=== PATIENT | male | born 1965 | race Caucasian/White ===

== ENCOUNTER → 2017-12-24 | Outpatient (CLI) | payer MEDICARE ==
[~2017-12-24] MED LIST: AMLO5 PO; Aluminum H320 MG/5 M PO; Aranesp60 MCG/0.3 INJ; BUME2 PO; CLON.2TP TOP; DOCU100 PO; HYDACE10B PO; HYDACE5 PO; HYDACE5325 PO; IBUP400; METO25ER PO; Norco 5-325 Ta1 EACH PO; OXYC5 PO; SEVEC800 PO; SULTRIDS PO; Synthroid25 MCG PO
[2017-12-30 15:07] LABS: A/G RATIO 1.8 (0.7-1.7); ALBUMIN 4.1 g/dL (2.9-4.4); ALPHA-1-GLOBULIN 0.1 g/dL (0.0-0.4); ALPHA-2-GLOBULIN 0.6 g/dL (0.4-1.0); BETA GLOBULIN 0.4 g/dL (0.7-1.3); GAMMA GLOBULIN 1.1 g/dL (0.4-1.8); GLOBULIN, TOTAL 2.3 g/dL (2.2-3.9); IMMUNOGLOBULIN A, QN, SERUM 228 mg/dL (90-386); IMMUNOGLOBULIN G, QN, SERUM 1103 mg/dL (700-1600); IMMUNOGLOBULIN M, QN, SERUM 65 mg/dL (20-172); M-SPIKE Not Observed g/dL (Not Observed); PROTEIN, TOTAL, SERUM 6.4 g/dL (6.0-8.5)
== END | disposition home or self-care (01) ==
LOC: LAB SHORT 08:51 → LAB 08:51
PROVIDERS: Internal Medicine Nephrology
DX: E83.52 Hypercalcemia (principal)
CPT/HCPCS: 82784; 84165; 86334

== ENCOUNTER → 2018-06-12 | Outpatient (CLI) | payer MEDICARE | LOC: LAB SHORT 08:35 → LAB 08:35 | DX: E07.9 Disorder of thyroid, unspecified (principal) | CPT/HCPCS: 84443 ==

== ENCOUNTER 2018-11-11 10:42 | Observation (INO) | payer MEDICARE, OTHER ==
[~2018-11-11] VITALS: Ht 182.9 cm; Wt 77.1 kg
[~2018-11-11 10:42] MED LIST changes: +LEVOFLOXACIN250 MG PO; +SYNTHROID175 MCG PO; -Synthroid25 MCG PO
[2018-11-11 11:34] LABS: BASOPHILS ABSOLUTE AUTO 0.02 K/mm3 (0.00-0.23); BASOPHILS PERCENT AUTO 1 % (0-2); EOSINOPHILS ABSOLUTE AUTO 0.08 K/mm3 (0.00-0.68); EOSINOPHILS PERCENT AUTO 2 % (0-6); Hematocrit 28.2 % (37.0-53.0); Hemoglobin 8.9 g/dL (13.5-17.5); IMMATURE GRAN ABSOLUTE AUTO 0.06 K/mm3 (0.00-0.10); IMMATURE GRAN PERCENT AUTO 1 % (0-1); LYMPHOCYTES ABSOLUTE AUTO 0.77 K/mm3 (0.84-5.20); LYMPHOCYTES PERCENT AUTO 18 % (21-46); MONOCYTES ABSOLUTE AUTO 0.29 K/mm3 (0.16-1.47); MONOCYTES PERCENT AUTO 7 % (4-13); Mean Corpuscular HGB 30.5 pg (26.0-34.0); Mean Corpuscular HGB Conc 31.6 g/dL (31.5-36.5); Mean Corpuscular Volume 97 fL (80-100); Mean Platelet Volume 9.1 fL (9.1-12.4); NEUTROPHILS ABSOLUTE AUTO 3.09 K/mm3 (1.96-9.15); NEUTROPHILS PERCENT AUTO 72 % (41-73); Platelet Count 174 K/mm3 (150-400); RDW Coefficient Variation 13.9 % (11.7-14.2); RDW Standard Deviation 48.7 fL (35.1-46.3); Red Blood Cell Count 2.92 M/mm3 (4.30-5.90); White Blood Cell Count 4.31 K/mm3 (4.00-11.30)
[2018-11-11 12:10] LABS: Albumin, Blood 2.9 g/dL (3.4-5.0); Anion Gap 10 mmol/L (6-16); Blood Urea Nitrogen 54 mg/dL (8-24); Bun/Creatinine Ratio 5.7 (12.0-20.0); CO2, Blood 29 mmol/L (21-32); Calcium, Blood 8.6 mg/dL (8.5-10.1); Chloride, Blood 95 mmol/L (98-108); Creatinine, Blood 9.41 mg/dL (0.60-1.20); Glomerular Filtration Rate 6 (60-); Glucose, Blood 100 mg/dL (70-99); Phosphorus, Blood 4.4 mg/dL (2.5-4.9); Sodium, Blood 134 mmol/L (136-145)
[2018-11-11] MEDS ORDERED: CLON.1 PO (12:51)
[2018-11-11] MEDS ORDERED: LOSA50 PO ×2 (12:53→15:54)
[2018-11-11] MEDS ORDERED: VELPHORO500 MG PO (12:56)
[2018-11-11] MEDS ORDERED: Calcium Acetat667 MG PO (12:59)
[2018-11-11] MEDS ORDERED: Zoloft50 MG PO (13:05)
[2018-11-11] MEDS ORDERED: RENAL-VITE TAB0.8 MG PO (13:18)
[2018-11-11] MEDS ORDERED: Revatio20 MG PO (13:20)
[2018-11-11] MEDS ORDERED: MEGESTROL400 MG/10 PO (13:22)
[2018-11-11] MEDS ORDERED: Ventolin/Prove6.7 GM INH (13:23)
[2018-11-11] MEDS ORDERED: ALPR.5 PO (15:57)
--- NOTE | 2018-11-11 18:56 | NUR ---
PT. LYING QUIETLY VISITING WITH FAMILY. PT TO HAVE FISYULA OPERATED ON THIS EVENING BY DR. SUGGS. VANCO GIVEN IV PER DR. VILLANUEVA PROPHYLACTILY BEFORE HAVING SURGERY.
--- NOTE | 2018-11-12 00:55 | NUR ---
CALLED TO [facility] AND GAVE RESULTS OF K AT 5.7. HE ORDERED LOSARTAN TO BE DC'D. CHANGE DIET TO LOW SODIUM AND LOW POTASSIUM 2G NA AND 2G K. HE ALSO WANTS MORNING LABS TO BE DRAWN AT 0400. I HAVE CALLED LAB AND INFORMED OF THIS.
[2018-11-12 04:20] LABS: Hematocrit 26.4 % (37.0-53.0); Hemoglobin 8.3 g/dL (13.5-17.5); Mean Corpuscular HGB 30.9 pg (26.0-34.0); Mean Corpuscular HGB Conc 31.4 g/dL (31.5-36.5); Mean Corpuscular Volume 98 fL (80-100); Mean Platelet Volume 8.4 fL (9.1-12.4); Platelet Count 161 K/mm3 (150-400); RDW Standard Deviation 50.2 fL (35.1-46.3); Red Blood Cell Count 2.69 M/mm3 (4.30-5.90); White Blood Cell Count 5.47 K/mm3 (4.00-11.30)
[2018-11-12 04:41] LABS: Magnesium, Blood 2.6 mg/dL (1.6-2.4)
[2018-11-12 04:44] LABS: Albumin, Blood 2.6 g/dL (3.4-5.0); Anion Gap 8 mmol/L (6-16); Blood Urea Nitrogen 62 mg/dL (8-24); CO2, Blood 27 mmol/L (21-32); Calcium, Blood 8.2 mg/dL (8.5-10.1); Chloride, Blood 101 mmol/L (98-108); Glomerular Filtration Rate 6 (60-); Glucose, Blood 97 mg/dL (70-99); Phosphorus, Blood 5.5 mg/dL (2.5-4.9); Potassium, Blood 5.4 mmol/L (3.5-5.5); Sodium, Blood 136 mmol/L (136-145); Vancomycin, Random 25.7 ug/mL
--- NOTE | 2018-11-12 07:42 | NUR ---
NOC SHIFT SUMMARY PT PLEASANT AND COOPERATIVE WITH CARE THIS NIGHT. FAMILY IN ROOM THIS EVENING. PT WAS TAKEN TO SURGERY TO REPAIR DIALYSIS GRAFT AT 0. ON RETURNING AT 2316 PT WAS AAOX4 BUT A LITTLE SLEEPY. VSS. REQUESTING PAIN MEDICINE WHICH WAS GIVEN. PER [facility] LESS THAN 2G SODIUM AND POTASSIUM DIET. PER [facility] TO RECIEVE 2 UNITY PRBC'S AND DIALYSIS TODAY. FISTULA WRAPPING APPEARS C/D/I. RECIEVED CRITICAL LAB VALUE OF 10.3 CREATININE AT 0445 CALLED TO [facility] NO ORDERS. APPEARS IN NO ACUTE DISTRESS. REPORT TO ONCOMING RN.
[2018-11-12] MEDS ORDERED: Vancocin HCL1000 MG (15:09)
--- NOTE | 2018-11-12 15:31 | NUR ---
PT DISCHARGED WITH DC INSTRUCTIONS. HAD NO HOME MEDS AT HOSPITAL. LOST PHONE IN THE ROOM 327, NEVER FOUND. LEFT MESSAGE AT NURSES DESK IN CASE ONE SHOWS UP. CALLED JOSE LUIS AND THE LAB TO NOTIFY THEM OF DR BRENNAN INSTRUCTIONS FOR VANC PROTOCOL 2 WEEKS. IV DC'D. DIALYSIS GRAFT WITH BANDAIDS, NO BLEEDING. AMBULATORY OUT TO CAR WITH , REFUSED W/C TRANSPORT.
== END 2018-11-12 15:30 | disposition home or self-care (01) ==
LOC: ER 10:42 → MEDS 10:43 → ER 13:40 → MEDS 13:40
PROVIDERS: Emergency Medicine; Pharmacist; ADMIT Internal Medicine
DX: T82.49XA Other complication of vascular dialysis catheter, initial encounter (principal); I12.0 Hypertensive chronic kidney disease with stage 5 chronic kidney disease or end stage renal disease; N18.6 End stage renal disease; D63.1 Anemia in chronic kidney disease; R78.81 Bacteremia; E86.9 Volume depletion, unspecified; E03.9 Hypothyroidism, unspecified; Z79.899 Other long term (current) drug therapy
CPT/HCPCS: 36415; 36430; 36905; 80048; 80069; 80202; 83605; 83735; 84132; 85025; 85027; 86850; 86900; 86901; 86923; 87040; 96374; 96375; 99152; 99153; 99284-25; C1725; C1757; C1769; C1894; C9113; G0257; G0378; J0881; J1170; J1644; J2405; J3010; J3370; J7030; J7042; P9016; Q9967

== ENCOUNTER 2018-11-21 09:02 | Day surgery (SDC) | payer MEDICARE, OTHER ==
[~2018-11-21] VITALS: Ht 175.3 cm; Wt 170.8 kg
[~2018-11-21 09:02] MED LIST changes: +ALPR.5 PO; +CLON.1 PO; +Calcium Acetat667 MG PO; +LOSA50 PO; +MEGESTROL400 MG/10 PO; +RENAL-VITE TAB0.8 MG PO; +Revatio20 MG PO; +VELPHORO500 MG PO; +Vancocin HCL1000 MG; +Ventolin/Prove6.7 GM INH; +Zoloft50 MG PO
--- NOTE | 2018-11-21 09:50 | NUR ---
Pt lungs clear with sb 43. Pt with in room. Call light given.
--- NOTE | 2018-11-21 11:23 | NUR ---
Pt returned at 1100 wide awake with chronic pain of 5/10 back. Pt chest site dry and intact. Pt with call light. He is recovering in recliner chair. HR low pt told to speak to pcp regarding b/p meds.
--- NOTE | 2018-11-21 12:00 | NUR ---
Pt to see Dr. Mendez today regarding low heart rate of 39 post op 40 pre op.
== END 2018-11-21 12:00 | disposition home or self-care (01) ==
LOC: MHTC 09:02
PROC: 02HV33Z Insertion of Infusion Device into Superior Vena Cava, Percutaneous Approach (ICD-10-PCS; principal; 2018-11-21)
PROC: B548ZZA Ultrasonography of Superior Vena Cava, Guidance (ICD-10-PCS; principal; 2018-11-21)
PROC: 0JH63XZ Insertion of Tunneled Vascular Access Device into Chest Subcutaneous Tissue and Fascia, Percutaneous Approach (ICD-10-PCS; principal; 2018-11-21)
DX: T82.898A Other specified complication of vascular prosthetic devices, implants and grafts, initial encounter (principal); N18.6 End stage renal disease; Z99.2 Dependence on renal dialysis; R00.1 Bradycardia, unspecified
CPT/HCPCS: 36558; 76937; 93005; 93010; 99152; 99153; C1750; C1769; J1644; J2250; J3010; J7040

== ENCOUNTER 2018-11-25 09:52 | Day surgery (SDC) | payer MEDICARE, OTHER ==
[~2018-11-25] VITALS: Ht 177.8 cm; Wt 77.0 kg
== END 2018-11-25 15:15 | disposition home or self-care (01) ==
LOC: MHTC 09:52
PROC: 05C83ZZ Extirpation of Matter from Left Axillary Vein, Percutaneous Approach (ICD-10-PCS; principal; 2018-11-25)
PROC: 05783DZ Dilation of Left Axillary Vein with Intraluminal Device, Percutaneous Approach (ICD-10-PCS; principal; 2018-11-25)
DX: T82.858A Stenosis of other vascular prosthetic devices, implants and grafts, initial encounter (principal); T82.868A Thrombosis due to vascular prosthetic devices, implants and grafts, initial encounter; N18.6 End stage renal disease; I87.1 Compression of vein; I12.0 Hypertensive chronic kidney disease with stage 5 chronic kidney disease or end stage renal disease; E03.9 Hypothyroidism, unspecified; D63.1 Anemia in chronic kidney disease; Z99.2 Dependence on renal dialysis; Z79.899 Other long term (current) drug therapy; Z79.891 Long term (current) use of opiate analgesic
CPT/HCPCS: 36904; 36908; 99152; 99153; C1725; C1757; C1769; C1876; C1894; J1644; J2250; J3010; J7030; Q9967

== ENCOUNTER 2019-08-04 13:51 | Observation (INO) | payer MEDICARE, OTHER ==
[~2019-08-04] VITALS: Ht 175.3 cm; Wt 67.0 kg
[~2019-08-04 13:51] MED LIST changes: +EUTHYROX175 MCG PO; -SYNTHROID175 MCG PO
[2019-08-04] MEDS ORDERED: Prednisone10 MG PO (14:54)
[2019-08-04] MEDS ORDERED: Coreg12.5 MG PO (14:55)
[2019-08-04] MEDS ORDERED: Aspirin EC81 MG PO (14:55)
[2019-08-04] MEDS ORDERED: FAMOTIDINE (14:55)
[2019-08-04] MEDS ORDERED: NIFE60ER PO (15:24)
[2019-08-04] MEDS ORDERED: TACR1 PO (15:24)
[2019-08-04 16:23] LABS: BASOPHILS ABSOLUTE AUTO 0.02 K/mm3 (0.00-0.23); BASOPHILS PERCENT AUTO 0 % (0-2); EOSINOPHILS ABSOLUTE AUTO 0.01 K/mm3 (0.00-0.68); EOSINOPHILS PERCENT AUTO 0 % (0-6); Hematocrit 18.3 % (37.0-53.0); IMMATURE GRAN ABSOLUTE AUTO 0.04 K/mm3 (0.00-0.10); IMMATURE GRAN PERCENT AUTO 1 % (0-1); LYMPHOCYTES ABSOLUTE AUTO 0.51 K/mm3 (0.84-5.20); LYMPHOCYTES PERCENT AUTO 11 % (21-46); MONOCYTES ABSOLUTE AUTO 0.18 K/mm3 (0.16-1.47); MONOCYTES PERCENT AUTO 4 % (4-13); Mean Corpuscular HGB 29.8 pg (26.0-34.0); Mean Corpuscular HGB Conc 29.5 g/dL (31.5-36.5); Mean Corpuscular Volume 101 fL (80-100); Mean Platelet Volume 9.8 fL (9.1-12.4); NEUTROPHILS PERCENT AUTO 84 % (41-73); Platelet Count 161 K/mm3 (150-400); RDW Coefficient Variation 14.2 % (11.7-14.2); RDW Standard Deviation 49.4 fL (35.1-46.3); Red Blood Cell Count 1.81 M/mm3 (4.30-5.90); White Blood Cell Count 4.66 K/mm3 (4.00-11.30)
[2019-08-04 16:25] LABS: Hemoglobin 5.4 g/dL (13.5-17.5)
[2019-08-04 16:36] LABS: International Normalized Ratio 0.95; Prothrombin Time Results 10.2 Sec (9.7-11.5)
[2019-08-04 16:44] LABS: Albumin, Blood 3.2 g/dL (3.4-5.0); Albumin/Globulin Ratio 1.1 (0.8-1.8); Bilirubin, Total 0.5 mg/dL (0.1-1.0); Bun/Creatinine Ratio 24.8 (12.0-20.0); Creatinine, Blood 2.22 mg/dL (0.60-1.20); Potassium, Blood 4.3 mmol/L (3.5-5.5); Total Protein, Blood 6.2 g/dL (6.4-8.2)
[2019-08-04 21:51] LABS: Hematocrit 22.8 % (37.0-53.0); Hemoglobin 7.1 g/dL (13.5-17.5)
--- NOTE | 2019-08-05 03:04 | NUR ---
53 yr old male was admitted to the floor from the ED last evening with Dx of abnormal labs and possible GI Bleed. Had received 2 units of PRBC in the ED prior to coming up to the unit. Alert and oriented x 4. IVF of NS at 75 ml/hr. Has been resting quietly with few interruptions since admission and currently appears to be sleeping. No noted signs of acute distress. Call light in reach.
[2019-08-05 05:13] LABS: BASOPHILS ABSOLUTE AUTO 0.03 K/mm3 (0.00-0.23); BASOPHILS PERCENT AUTO 1 % (0-2); EOSINOPHILS ABSOLUTE AUTO 0.08 K/mm3 (0.00-0.68); EOSINOPHILS PERCENT AUTO 2 % (0-6); Hematocrit 20.7 % (37.0-53.0); Hemoglobin 6.5 g/dL (13.5-17.5); IMMATURE GRAN ABSOLUTE AUTO 0.04 K/mm3 (0.00-0.10); IMMATURE GRAN PERCENT AUTO 1 % (0-1); LYMPHOCYTES PERCENT AUTO 37 % (21-46); MONOCYTES ABSOLUTE AUTO 0.43 K/mm3 (0.16-1.47); MONOCYTES PERCENT AUTO 9 % (4-13); Mean Corpuscular HGB 30.1 pg (26.0-34.0); Mean Corpuscular HGB Conc 31.4 g/dL (31.5-36.5); Mean Platelet Volume 9.7 fL (9.1-12.4); NEUTROPHILS ABSOLUTE AUTO 2.52 K/mm3 (1.96-9.15); NEUTROPHILS PERCENT AUTO 52 % (41-73); Platelet Count 143 K/mm3 (150-400); RDW Coefficient Variation 16.5 % (11.7-14.2); RDW Standard Deviation 54.3 fL (35.1-46.3); Red Blood Cell Count 2.16 M/mm3 (4.30-5.90)
[2019-08-05 05:17] LABS: Mean Corpuscular Volume 96 fL (80-100)
[2019-08-05 05:48] LABS: Albumin, Blood 2.8 g/dL (3.4-5.0); Anion Gap 6 mmol/L (6-16); Blood Urea Nitrogen 45 mg/dL (8-24); Bun/Creatinine Ratio 21.4 (12.0-20.0); CO2, Blood 25 mmol/L (21-32); Calcium, Blood 9.4 mg/dL (8.5-10.1); Chloride, Blood 111 mmol/L (98-108); Glomerular Filtration Rate 35 (60-); Glucose, Blood 78 mg/dL (70-99); Magnesium, Blood 1.9 mg/dL (1.6-2.4); Phosphorus, Blood 2.9 mg/dL (2.5-4.9); Potassium, Blood 4.1 mmol/L (3.5-5.5); Sodium, Blood 142 mmol/L (136-145)
--- NOTE | 2019-08-05 06:04 | NUR ---
am hgb 6.5. [employer] NOTIFIED, ONE UNIT PRBC'S ORDERED TO BE INFUSED. PT ASYMPTOMAIC. DR VILLANUEVA IN [place] AND WAS NOTIFIED OF ABOVE. DR VILLANUEVA ORDERED TO DROP THE IVF OF NS TO 50 ML/HR AND TO HOLD THE NS WHILE BLOOD WAS ADMINISTERED.
[2019-08-05] MEDS ORDERED: CINA30 PO (10:07)
[2019-08-05] MEDS ORDERED: ALBU3IS INH (10:09)
[2019-08-05] MEDS ORDERED: TADA10TA PO (10:10)
[2019-08-05] MEDS ORDERED: ESCI10 PO (10:12)
[2019-08-05] MEDS ORDERED: PRED5 PO (10:13)
[2019-08-05] MEDS ORDERED: K PHOS NEUTRAL PO (10:20)
--- NOTE | 2019-08-05 10:42 | NUR ---
HEART RATE/MEDICATION PT'S HEART RATE IN 50'S THIS AM. THIS RN TALKED WITH DR. SHAFER ABOUT HEART RATE AND MEDICATIONS, CORGE AND PROCARDIA. DR SHAFER ORDERED TO HOLD PROCARDIA THIS AM AND CHANGE COREG DOSE AND HOLD UNTIL TONIGHT. NO FURTHER ORDERS AT THIS TIME.
--- NOTE | 2019-08-05 11:43 | NUR ---
08/05/19 1143 OSMAR HWANG History, Chart, Medications and Allergies reviewed before start of procedure. 3-LEAD EKG REVIEWED WITH PHYSICIAN PRIOR TO START OF PROCEDURE.O2 VIA N/C INTACT THROUGHOUT SEDATION/PROCEDURE. MONITOR INTACT WITH CONTINUOUS PULSE OXIMETRY AND INTERMITTENT BP. PATIENT DETERMINED TO BE ASA APPROPRIATE FOR PROPOFOL SEDATION PRIOR TO START OF PROCEDURE BY DR. SHELBY
--- NOTE | 2019-08-05 18:09 | NUR ---
SHIFT SUMMARY PT HAS HAD NO COMPLAINTS OF ABDOMINAL PAIN OR NAUSEA THIS SHIFT. PT HAD ENDOSCOPY THIS SHIFT. SEE PHYSICIAN'S NOTES FOR FINDINGS. PT HAS DECLINED TO EAT ALL SHIFT DUE TO FULL LIQUID DIET. MEDICATED FOR PAIN PER EMAR FOR CHRONIC BACK PAIN. K-PAD ALSO PLACED FOR CHRONIC BACK PAIN. THIS RN ENCOUARGED PT TO AMBULATE AND SIT UP IN CHAIR. THIS RN ALSO OFFERED TO GET EGG CRATE FOR COMFORT BUT PT DECLINED. NO REPORTS OF ANY STOOLS THIS SHIFT. THIS RN REMINDED PT TO CALL RN IF HAD BM FOR OBSERVANCE. NO ACUTE CHANGS THIS SHIFT. IVF INFUSING PER MD ORDERS. WILL CONTINUE TO MONTOR AND REPORT TO ONCOMING RN. CALL LIGHT IN REACH.
--- NOTE | 2019-08-06 03:06 | NUR ---
SHIFT SUMMARY ASSUMED CARE OF PT AT 1900. PT IS A/O X4, DENIES N/T IN EXTREMITIES. HEART SOUNDS REGULAR, LUNG SOUNDS CLEAR, DENIES SOB/CP. PT STATES HIS ONLY COMPLAINT IS THAT HIS BACK IS HURTING, PT STATED HE HAS COMPRESSION FRACTURES FROM FALLING OFF A HORSE A FEW YEARS BACK AND FROM A WORK ACCIDENT, MEDICATED PT WITH A COMBINATION OF OXYCODONE AND TYLENOL, COMBINATION BROUGHT PT PAIN DOWN TO A 4-5/10 LEVEL, WHERE IT STAYED T/O THE NIGHT. PT ALSO NOTICED AFTER HIS VITALS WERE TAKEN THAT HIS BP HAS BEEN HIGHER SINCE HE HAS BEEN HERE, EDUCATED PT ABOUT TAKING TO THEIR DOCTOR OUTPATIENT. NO ACUTE EVENTS DURING THE NIGHT, PT SLEPT FOR A COUPLE HOURS DURING THE NIGHT. CALL LIGHT IN REACH, BED IN LOWEST POSITION, WILL CONTINUE TO MONITOR UNTIL DAYSHIFT NURSE ARRIVES.
[2019-08-06 04:17] LABS: Hematocrit 25.8 % (37.0-53.0); Hemoglobin 8.1 g/dL (13.5-17.5); Mean Corpuscular HGB 29.7 pg (26.0-34.0); Mean Corpuscular HGB Conc 31.4 g/dL (31.5-36.5); Mean Corpuscular Volume 95 fL (80-100); Mean Platelet Volume 9.4 fL (9.1-12.4); Platelet Count 161 K/mm3 (150-400); RDW Coefficient Variation 17.1 % (11.7-14.2); Red Blood Cell Count 2.73 M/mm3 (4.30-5.90); White Blood Cell Count 5.93 K/mm3 (4.00-11.30)
[2019-08-06 04:42] LABS: Anion Gap 5 mmol/L (6-16); Blood Urea Nitrogen 31 mg/dL (8-24); Bun/Creatinine Ratio 14.6 (12.0-20.0); CO2, Blood 25 mmol/L (21-32); Calcium, Blood 9.5 mg/dL (8.5-10.1); Chloride, Blood 112 mmol/L (98-108); Creatinine, Blood 2.12 mg/dL (0.60-1.20); Glomerular Filtration Rate 35 (60-); Glucose, Blood 91 mg/dL (70-99); Magnesium, Blood 1.8 mg/dL (1.6-2.4); Phosphorus, Blood 2.2 mg/dL (2.5-4.9); Sodium, Blood 142 mmol/L (136-145)
[2019-08-06] MEDS ORDERED: Carafate1 GM/10 ML PO (14:24)
[2019-08-06] MEDS ORDERED: PANT40 PO (14:24)
--- NOTE | 2019-08-06 14:59 | NUR ---
DISCHARGED TO HOME WITH BELONGINGS AND INSTRUCTIONS. 1 UNIT OF PRBC'S GIVEN EARLIER TODAY AND ALSO NAPHOS REPLACEMENT. TOOK PERCOCET FOR PAIN. NO OTHER COMPLAINTS AND SO HAPPY TO GO HOME.
--- NOTE | 2019-08-06 18:04 | NUR ---
Mr. Eli was talkative and pleasant. He is waiting to be d/c. He tells me he is worried about his chronic illness, but trusts his physician to guide him back to health. He responded well to encouragement and prayer.
== END 2019-08-06 14:58 | disposition home or self-care (01) ==
LOC: ER 13:51 → MEDS 13:52
PROVIDERS: Internal Medicine; Nurse Practitioner Acute Care; Physician Assistant; Student in an Organized Health Care Education/Training Program; ADMIT Family Medicine
PROC: 0DB58ZZ Excision of Esophagus, Via Natural or Artificial Opening Endoscopic (ICD-10-PCS; principal; 2019-08-05 11:30)
PROC: 0DB68ZZ Excision of Stomach, Via Natural or Artificial Opening Endoscopic (ICD-10-PCS; principal; 2019-08-05 11:30)
PROC: 0DB98ZZ Excision of Duodenum, Via Natural or Artificial Opening Endoscopic (ICD-10-PCS; principal; 2019-08-05 11:30)
DX: K29.80 Duodenitis without bleeding (principal); K20.9 Esophagitis, unspecified; I12.9 Hypertensive chronic kidney disease with stage 1 through stage 4 chronic kidney disease, or unspecified chronic kidney disease; N18.9 Chronic kidney disease, unspecified; F17.220 Nicotine dependence, chewing tobacco, uncomplicated; E03.9 Hypothyroidism, unspecified; D63.1 Anemia in chronic kidney disease; E83.39 Other disorders of phosphorus metabolism; J45.909 Unspecified asthma, uncomplicated; Z94.0 Kidney transplant status; Z79.82 Long term (current) use of aspirin; Z79.899 Other long term (current) drug therapy
CPT/HCPCS: 36415; 36430; 71045; 76776; 80053; 80069; 80197; 82272; 83735; 85014; 85018; 85025; 85027; 85610; 85730; 86850; 86900; 86901; 86923; 87081; 87430; 88305; 88341; 88342; 93005; 93010; 96365; 96366; 96367; 96376; 99285-25; A9270; A9270-GY; C9113; G0378; J0881; J2704; J7030; J7060; J7120; J7507; J7512; P9016

== ENCOUNTER 2019-12-29 00:06 | Day surgery (SDC) | payer MEDICARE, OTHER ==
[~2019-12-29 00:06] MED LIST changes: +ALBU3IS INH; +ALBU90OI INH; +Aspirin EC81 MG PO; +CINA30 PO; +Carafate1 GM/10 ML PO; +Cellcept500 MG PO; +Coreg12.5 MG PO; +ESCI10 PO; +FAMOTIDINE; +K PHOS NEUTRAL PO; +LEVO-T175 MCG PO; +MULTIPLE VITAM1 EACH PO; +NIFE60ER PO; +PANT40 PO; +PRED5 PO; +PROGRAF1 M1 PO; +Prednisone10 MG PO; +TACR1 PO; +TADA10TA PO
[2019-12-29] MEDS ORDERED: VITAMIN D32000 UNI1 PO (15:14)
[2019-12-29] MEDS ORDERED: PRED5 PO (15:22)
[2019-12-29] MEDS ORDERED: MYCO250 PO (15:23)
== END 2019-12-29 18:05 | disposition home or self-care (01) ==
LOC: ATC 00:06
DX: B34.8 Other viral infections of unspecified site (principal); I10 Essential (primary) hypertension; K29.61 Other gastritis with bleeding; R05 Cough; E03.9 Hypothyroidism, unspecified; M81.0 Age-related osteoporosis without current pathological fracture; D64.9 Anemia, unspecified; Z94.0 Kidney transplant status; Z79.899 Other long term (current) drug therapy; Z79.02 Long term (current) use of antithrombotics/antiplatelets; Z79.82 Long term (current) use of aspirin
CPT/HCPCS: 96365; 96366; A9270; J1568; Q0163

== ENCOUNTER 2022-09-27 15:48 | Emergency (ER) | payer MEDICARE, OTHER ==
[~2022-09-27] VITALS: Ht 172.7 cm; Wt 70.3 kg
[~2022-09-27 15:48] MED LIST changes: +MYCO250 PO; +VITAMIN D32000 UNI1 PO
[2022-09-27 16:08] VITALS: BP 117/67
== END 2022-09-27 19:11 | disposition home or self-care (01) ==
LOC: ER 15:48
DX: T15.02XA Foreign body in cornea, left eye, initial encounter (principal); T15.01XA Foreign body in cornea, right eye, initial encounter; I12.0 Hypertensive chronic kidney disease with stage 5 chronic kidney disease or end stage renal disease; N18.6 End stage renal disease; E03.9 Hypothyroidism, unspecified; E21.3 Hyperparathyroidism, unspecified; J45.909 Unspecified asthma, uncomplicated; D64.9 Anemia, unspecified; F17.220 Nicotine dependence, chewing tobacco, uncomplicated; Z79.52 Long term (current) use of systemic steroids; Z79.82 Long term (current) use of aspirin; Z79.899 Other long term (current) drug therapy; X58.XXXA Exposure to other specified factors, initial encounter
CPT/HCPCS: A9270

== ENCOUNTER 2023-09-01 15:00 | Emergency (ER) | payer MEDICARE, OTHER ==
[~2023-09-01] VITALS: Ht 175.3 cm; Wt 68.0 kg
[2023-09-01 15:06] VITALS: BP 116/84
== END 2023-09-01 15:15 | disposition home or self-care (01) ==
LOC: ER 15:00
DX: J30.9 Allergic rhinitis, unspecified (principal); H93.92 Unspecified disorder of left ear; E03.9 Hypothyroidism, unspecified; I12.0 Hypertensive chronic kidney disease with stage 5 chronic kidney disease or end stage renal disease; N18.6 End stage renal disease; F17.220 Nicotine dependence, chewing tobacco, uncomplicated; Z79.899 Other long term (current) drug therapy; Z79.52 Long term (current) use of systemic steroids; Z79.890 Hormone replacement therapy; Z79.82 Long term (current) use of aspirin
CPT/HCPCS: 99282